=== PATIENT | male | born 1985 | race Caucasian/White ===

== ENCOUNTER 2017-07-24 19:33 | Emergency (ER) | payer MEDICAID ==
[~2017-07-24] VITALS: Ht 177.8 cm; Wt 79.4 kg
[2017-07-24 19:34] VITALS: BP_SYST 130
[2017-07-24] MEDS ORDERED: NACL 0.9% 1,000 ML IV ONE (20:15)
[2017-07-24] MEDS ORDERED: CLINDAMYCIN 900 mg/50mL D5W 50 ML IV ONE (20:15)
[2017-07-24] MEDS ORDERED: KETOROLAC TROMETHAMINE 30 MG VIAL IVP ONE (20:30)
[2017-07-24 21:00] LABS: BASOPHILS % (AUTO) 0.4 % (0.0-2.0); EOSINOPHILS # (AUTO) 0.1 K/uL (0.0-0.4); EOSINOPHILS % (AUTO) 1.9 % (0.0-4.0); HEMATOCRIT 40.9 % (36-54); HEMOGLOBIN 13.6 g/dL (14.0-18.0); LYMPHOCYTES # (AUTO) 1.6 K/uL (1.0-5.5); LYMPHOCYTES % (AUTO) 21.2 % (20.5-51.5); MEAN CORPUSCULAR HEMOGLOBIN 29 pg (27-31); MEAN CORPUSCULAR HGB CONC 33 % (32-36); MEAN CORPUSCULAR VOLUME 88 fL (79.0-98.0); MONOCYTES # (AUTO) 0.5 K/uL (0.0-1.0); MONOCYTES % (AUTO) 7.2 % (1.7-9.3); NEUTROPHILS # (AUTO) 5.4 K/uL (1.8-7.7); NEUTROPHILS % (AUTO) 69.3 % (40.0-70.0); PLATELET COUNT (AUTO) 184 K/uL (130-430); RED BLOOD CELL COUNT(AUTO) 4.63 MIL/uL (4.2-6.2); RED CELL DISTRIBUTION WIDTH 12.5 % (9.0-15.0); WHITE BLOOD COUNT (AUTO) 7.6 K/uL (4.8-10.8)
[2017-07-24 21:16] LABS: INR 1.1 (0.80-1.20); PROTHROMBIN TIME 10.7 SECS (9.5-12.5)
[2017-07-24 21:25] LABS: CALCIUM 9.6 mg/dL (8.4-11.0); CREATININE 0.85 mg/dL (0.55-1.30); POTASSIUM 4.1 mmol/L (3.5-5.1)
[2017-07-24 21:30] LABS: TOTAL BILIRUBIN 0.8 mg/dL (0.0-1.0)
[2017-07-24 22:38] VITALS: BP_SYST 128
== END 2017-07-24 22:38 | disposition home or self-care (01) ==
LOC: SED 19:33
DX: T78.49XA Other allergy, initial encounter (principal); R03.0 Elevated blood-pressure reading, without diagnosis of hypertension; Z98.890 Other specified postprocedural states; X58.XXXA Exposure to other specified factors, initial encounter
CPT/HCPCS: 36415; 71010; 73610; 80053; 83605; 85025; 85610; 85730; 87040; 87081; 96374; 99285; J1885; J3490; J7030

== ENCOUNTER 2017-10-10 11:09 | Emergency (ER) | payer MEDICAID ==
[~2017-10-10] VITALS: Ht 177.8 cm; Wt 70.8 kg
[2017-10-10 11:10] VITALS: BP_SYST 158
[2017-10-10 11:47] VITALS: BP_SYST 158
== END 2017-10-10 11:47 ==
LOC: SED 11:09
DX: Z02.89 Encounter for other administrative examinations (principal); M79.672 Pain in left foot
CPT/HCPCS: 99283